=== PATIENT | male | born 1945 | race Caucasian/White ===

== ENCOUNTER 2021-02-14 07:15 | Day surgery (SDC) | payer OTHER ==
[2021-02-14] MEDS ORDERED: Lactated Ringers 1,000 ML IV SCH (07:30)
--- NOTE | 2021-02-14 08:01 | PCM.PREANE ---
Preanesthetic Assessment - Procedure Proposed Procedure: Colonoscopy - Anesthesia/Transfusion/Family Hx Anesthesia History: Prior Anesthesia Without Reaction Transfusion History: No Prior Transfusion(s) - Review of Systems General: No Symptoms Pulmonary: No Symptoms (quit smoking >30yrs ago) Cardiovascular: No Symptoms Gastrointestinal: No Symptoms (Gerd well controlled, h/o polyps) Neurological: No Symptoms Other: Reports: None - Physical Assessment NPO Status Date: 02/13/21 NPO Status Time: 08:00 (solids, >8hrs liq) Vital Signs: Last Vital Signs Temp 98.6 F 02/14/21 07:25 Pulse 62 02/14/21 07:25 Resp 16 02/14/21 07:25 BP 126/77 02/14/21 07:25 Pulse Ox 95 02/14/21 07:25 Height: 5 ft 8 in Weight: 98.43 kg ASA Class: 2 Mental Status: Alert & Oriented x3 Airway Class: Mallampati = 2 Dentition: Reports: Normal Dentition Thyro-Mental Finger Breadths: 3 Mouth Opening Finger Breadths: 3 ROM/Head Extension: Full Lungs: Clear to Auscultation, Normal Respiratory Effort Cardiovascular: Regular Rate, Regular Rhythm - Allergies Allergies/Adverse Reactions: Allergies Allergy/AdvReac Type Severity Reaction Status Date / Time No Known Allergies Allergy Verified 02/08/21 09:55 - Acknowledgements Anesthesia Type Planned: General Anesthesia Pt an Appropriate Candidate for the Planned Anesthesia: Yes Alternatives and Risks of Anesthesia Discussed w Pt/Guardian: Yes Pt/Guardian Understands and Agrees with Anesthesia Plan: Yes PreAnesthesia Questionnaire HEENT History: Reports: Other (See Below) Other HEENT History: wears glasses, hx of fx nose Cardiovascular History: Reports: Hypertension Respiratory History: Reports: None Gastrointestinal History: Reports: Colon Polyp, Diverticulosis, GERD Genitourinary History: Reports: Prostate Disorder, Urinary Incontinence Other Genitourinary History: hx of prostate cancer Musculoskeletal History: Reports: Back Pain, Chronic, Fracture Other Musculoskeletal History: hx of fx fingers Neurological History: Reports: None Other Neuro History: has motion sickness Psychiatric History: Reports: None Endocrine/Metabolic History: Reports: Obesity/BMI 30+ Hematologic History: Reports: None Immunologic History: Reports: None Oncologic (Cancer) History: Reports: Prostate Dermatologic History: Reports: None - Past Surgical History Head Surgeries/Procedures: Reports: None HEENT Surgical History: Reports: None Cardiovascular Surgical History: Reports: None Respiratory Surgical History: Reports: None GI Surgical History: Reports: Colonoscopy Male Surgical History: Reports: Other (See Below) Other Male Surgeries/Procedures: hx of Davinci prostatectomy Endocrine Surgical History: Reports: None Neurological Surgical History: Reports: None Musculoskeletal Surgical History: Reports: None Oncologic Surgical History: Reports: Other (See Below) Other Oncologic Surgeries/Procedures: prostatectomy Dermatological Surgical History: Reports: None - SUBSTANCE USE Tobacco Use Status *Q: Former Tobacco User Tobacco Use Within Last Twelve Months: No Recreational Drug Use History: No - HOME MEDS Home Medications: Home Meds Valsartan [Diovan] 80 mg PO QAM 11/03/15 [History] amLODIPine Besylate [Amlodipine Besylate] 10 mg PO QAM 11/03/15 [History] Ascorbic Acid 500 mg PO DAILY 02/08/21 [History] Fish Oil/[place]-3 Fatty Acids [Fish Oil 1,000 MG] 2 gm PO BID 02/08/21 [History] Omeprazole 40 mg PO ACBREAKFAST 02/08/21 [History] - CURRENT (IN HOUSE) MEDS Current Meds: Current Medications Lactated Ringer's (Ringers, Lactated) 1,000 mls @ 125 mls/hr IV ASDIRECTED [facility] Last Admin: 02/14/21 07:42 Dose: 125 mls/hr Documented by:
[2021-02-14] MEDS ORDERED: fentaNYL 100 MCG/2 ML SDV ONE (08:23)
[2021-02-14] MEDS ORDERED: Propofol 200 MG/20 ML SDV ONE (08:23)
[2021-02-14] MEDS ORDERED: Atropine 1 MG/ML SDV ONE (08:25)
[2021-02-14] MEDS ORDERED: Glycopyrrolate 0.2 MG/ML SDV ONE (08:25)
[2021-02-14] MEDS ORDERED: ePHEDrine 50 MG/ML SDV ONE (08:44)
--- NOTE | 2021-02-14 08:52 | PCM.OPNOTE ---
- General Post-Op/Procedure Note Date of Surgery/Procedure: 02/14/21 Operative Procedure(s): Colonoscopy Findings: Right and left sided diverticulosis dictation number [id number] Pre Op Diagnosis: History of colon polyps Post-Op Diagnosis: Right and left sided diverticulosis [place] [facility] [place]geon: Jameson Mitchell Pathology: none Complications: None Condition: Good
--- NOTE | 2021-02-14 09:00 | PCM.POSTAN ---
POST ANESTHESIA ASSESSMENT - MENTAL STATUS Mental Status: Alert, Oriented - VITAL SIGNS Vital Signs: Last Vital Signs Temp 98.6 F 02/14/21 07:25 Pulse 62 02/14/21 07:25 Resp 16 02/14/21 07:25 BP 126/77 02/14/21 07:25 Pulse Ox 95 02/14/21 07:25 - RESPIRATORY Respiratory Status: Respiratory Rate WNL, Airway Patent, O2 Saturation Stable - CARDIOVASCULAR CV Status: Pulse Rate WNL, Blood Pressure Stable - GASTROINTESTINAL GI Status: No Symptoms - PAIN Pain Score: 0 - POST OP HYDRATION Hydration Status: Adequate & Stable
--- NOTE | 2021-02-14 09:03 | PCM48HPAN ---
Post Anesthesia Note - EVALUATION WITHIN 48HRS OF ANESTHETIC Vital Signs in Normal Range: Yes Patient Participated in Evaluation: Yes Respiratory Function Stable: Yes Airway Patent: Yes Cardiovascular Function Stable: Yes Hydration Status Stable: Yes Pain Control Satisfactory: Yes Nausea and Vomiting Control Satisfactory: Yes Mental Status Recovered: Yes Vital Signs: Last Vital Signs Temp 98.6 F 02/14/21 07:25 Pulse 62 02/14/21 07:25 Resp 16 02/14/21 07:25 BP 126/77 02/14/21 07:25 Pulse Ox 95 02/14/21 07:25 - COMMENTS/OBSERVATIONS Free Text/Narrative:: Pt doing well post-op. VSS. No apparent anesthetic complications. Dr. Bhavin Tracy
[2021-02-14 09:17] VITALS: BP 111/64; PULSE 81
--- NOTE | 2021-02-15 07:28 | OR ---
SURGEON: CONNIE ULRICH MD DATE OF PROCEDURE: 02/14/2021 PREOPERATIVE DIAGNOSES: 1. History of colon polyps. 2. Change in bowel habits. POSTOPERATIVE DIAGNOSIS: Right and left-sided diverticulosis. PROCEDURE PERFORMED: Colonoscopy. PRIMARY SURGEON: Connie Ulrich MD ANESTHESIA: With anesthesiologist. EXTENT OF COLONOSCOPY: To the cecum. BOWEL PREP: Very good. LIMITATIONS: None. REASON FOR PROCEDURE: The patient is a pleasant 75-year-old gentleman whose last colonoscopy was 5 years ago and he had some polyps removed per patient report. Denies any blood in stool. Denies any family history of colon cancer. He says about a year and a half ago, he went from being regular to going between constipation and looser stools. PROCEDURE IN DETAIL: Physical examination was performed. The risks and benefits associated with procedure were explained to the patient in detail. The patient verbalized understanding and agreement of the same. The patient was then connected to the appropriate monitoring device and IV started. EKG, pulse, pulse oximetry, blood pressure, and capnography were monitored throughout the entire procedure. Continuous oxygen and sedation were provided by the anesthesiologist. The patient was placed in left lateral decubitus position. Sedation was began. After adequate sedation was achieved, a digital rectal exam was performed. No rectal masses or polyps were felt. Now, a well-lubricated Olympus colonoscope was inserted in the rectum, advanced under direct visualization to the level of the cecum. The cecum was identified by both visual and anatomic landmarks. Terminal ileum was also intubated. Scope was then slowly withdrawn in a circular fashion looking at the color, texture, anatomy, and integrity of mucosa from the cecum to the anal canal. Overall, the patient had a very good bowel prep. Right in the cecum, he had a little bit of liquid stool which was suctioned and irrigated out for an excellent look at the mucosa. The patient did have some diverticulosis in his ascending colon, especially around the hepatic flexure. Scope was continued to be withdrawn. The patient did have some several wide mouth open diverticulum in the sigmoid and descending colon. No polyps were seen. Scope was retroflexed in the rectum. Scope was completely withdrawn and the procedure was terminated. ENDOSCOPIC DIAGNOSIS: Right and left-sided diverticulosis. RECOMMENDATIONS: Followup colonoscopy in 10 years. He may need one sooner if he develops signs and symptoms such as change in bowel habits or blood in stool. In 10 years he will be 85. He should check with his physician whether he still needs his screening colonoscopy. DUY JUSTIN /[id number]
== END 2021-02-14 09:27 | disposition home or self-care (01) ==
LOC: MW.SDS 07:15
PROVIDERS: ATTEND Surgery
DX: K57.30 Diverticulosis of large intestine without perforation or abscess without bleeding (principal); I10 Essential (primary) hypertension; N52.9 Male erectile dysfunction, unspecified; E66.9 Obesity, unspecified; Z86.010 Personal history of colon polyps; Z79.899 Other long term (current) drug therapy; Z98.890 Other specified postprocedural states; Z87.891 Personal history of nicotine dependence; Z68.33 Body mass index [BMI] 33.0-33.9, adult
CPT/HCPCS: 45378; J0461; J2370; J2704; J3010; J3490; J7120